=== PATIENT | male | born 1950 | race Caucasian/White ===

== ENCOUNTER 2020-09-14 18:46 | Inpatient (IN) ==
[2020-09-14 20:11] LABS: Basophils % 0.3 %; Hematocrit 46.2 % (37.5-50.1); Hemoglobin 15.2 g/dL (12.9-16.9); Immature Granulocytes % 0.3 % (0-4); Lymphocytes # 1.1 K/mcL (0.6-4.6); Lymphocytes % 17.2 %; Mean Corpuscular HGB Conc 32.9 g/dL (31.6-35.5); Mean Corpuscular Hemoglobin 32.1 pg (28.0-33.3); Mean Corpuscular Volume 97.5 fL (83.0-100.0); Mean Platelet Volume 10.1 fL (9.4-12.4); Monocytes # 0.7 K/mcL (0.0-1.3); Monocytes % 10.4 %; Neutrophils # 4.7 K/mcL (1.6-8.9); Platelet Count 147 K/mcL (140-400); Red Blood Count 4.74 M/mcL (4.19-5.50); Segmented Neutrophils % 71.8 %; White Blood Count 6.5 K/mcL (4.3-11.1)
[2020-09-14 20:31] LABS: BUN/Creatinine Ratio 18 (6-26); Blood Urea Nitrogen 23 mg/dL (8-23); Carbon Dioxide 25 mEq/L (23-29); Chloride 99 mEq/L (98-107); Glucose 110 mg/dL (70-105); Osmolality,Calculated 280 (280-300); Potassium 4.6 mEq/L (3.5-5.1); Sodium 133 mEq/L (136-145); Troponin I < 0.03 ng/mL (< 0.04); eGFR For African Americans > 60 (> 60); eGFR For Non-African Americans 56 (> 60)
[2020-09-15] MEDS ORDERED: Naloxone 0.4 MG/ML INJ IVP PRN (00:10)
[2020-09-15] MEDS ORDERED: Ondansetron 4 MG/2 ML VIAL IVP PRN (00:10)
[2020-09-15] MEDS ORDERED: Acetaminophen 325 MG TABLET PO PRN (00:10)
[2020-09-15] MEDS ORDERED: Isovue-370 500 ML BOTTLE IVP ONE (04:00)
[2020-09-15 05:55] LABS: Basophils % 0.2 %; Hemoglobin 16.2 g/dL (12.9-16.9); Immature Granulocytes % 0.5 % (0-4); Lymphocytes # 0.8 K/mcL (0.6-4.6); Lymphocytes % 17.1 %; Mean Corpuscular HGB Conc 33.8 g/dL (31.6-35.5); Mean Corpuscular Hemoglobin 32.7 pg (28.0-33.3); Mean Corpuscular Volume 96.8 fL (83.0-100.0); Mean Platelet Volume 10.5 fL (9.4-12.4); Monocytes # 0.3 K/mcL (0.0-1.3); Monocytes % 7.3 %; Neutrophils # 3.3 K/mcL (1.6-8.9); Platelet Count 147 K/mcL (140-400); Red Blood Count 4.96 M/mcL (4.19-5.50); Red Cell Distribution Width 13.8 % (11.5-14.5); Segmented Neutrophils % 74.9 %; White Blood Count 4.4 K/mcL (4.3-11.1)
[2020-09-15 05:56] LABS: INR 1.1; Prothrombin Time 12.2 Seconds (9.4-12.1)
[2020-09-15 06:17] LABS: Alanine Aminotransferase 134 Units/L (7-52); Albumin 3.7 g/dL (3.5-5.7); Albumin/Globulin Ratio 1.1 (1.1-2.2); Alkaline Phosphatase 75 Units/L (34-104); Aspartate Amino Transferase 101 Units/L (13-39); BUN/Creatinine Ratio 21 (6-26); Bilirubin,Total 0.6 mg/dL (0.3-1.0); Blood Urea Nitrogen 23 mg/dL (8-23); Carbon Dioxide 21 mEq/L (23-29); Chloride 101 mEq/L (98-107); Globulin 3.4 g/dL (2.4-3.5); Glucose 204 mg/dL (70-105); Lactate Dehydrogenase 330 Units/L (140-271); Magnesium 1.8 mg/dL (1.6-2.6); Osmolality,Calculated 282 (280-300); Potassium 4.7 mEq/L (3.5-5.1); Sodium 131 mEq/L (136-145); Total Protein 7.1 g/dL (6.4-8.9); eGFR For African Americans > 60 (> 60); eGFR For Non-African Americans > 60 (> 60)
[2020-09-15 06:30] LABS: Ferritin > 1500 ng/mL (20-250)
[2020-09-15] MEDS ORDERED: Isovue-370 500 ML BOTTLE PO ONE (07:33)
[2020-09-15 08:52] LABS: C-Reactive Protein 66 mg/L (Less than 10)
[2020-09-15] MEDS ORDERED: Pregabalin 50 MG CAPSULE PO SCH ×2 (09:00→21:00)
[2020-09-15] MEDS: Dexamethasone Sodium Phos/PF 10 MG/ML VIAL IVP SCH (09:12)
[2020-09-15] MEDS: Furosemide 40 MG TABLET PO SCH (09:12)
[2020-09-15] MEDS: *HR* Enoxaparin 40 MG/0.4 ML SYRINGE SQ SCH (09:12)
[2020-09-15] MEDS ORDERED: Pregabalin 50 MG CAPSULE PO STA (09:16)
[2020-09-15] MEDS: Tiotropium 10 INH DOSE IH SCH (10:57)
[2020-09-16 05:28] LABS: Basophils % 0.1 %; Eosinophils % 0.1 %; Hematocrit 51.1 % (37.5-50.1); Hemoglobin 17.3 g/dL (12.9-16.9); Immature Granulocytes % 0.3 % (0-4); Mean Corpuscular HGB Conc 33.9 g/dL (31.6-35.5); Mean Corpuscular Hemoglobin 32.8 pg (28.0-33.3); Mean Platelet Volume 10.1 fL (9.4-12.4); Monocytes # 0.8 K/mcL (0.0-1.3); Monocytes % 7.1 %; Neutrophils # 8.9 K/mcL (1.6-8.9); Platelet Count 167 K/mcL (140-400); Red Blood Count 5.27 M/mcL (4.19-5.50); Red Cell Distribution Width 13.5 % (11.5-14.5); Segmented Neutrophils % 83.4 %
[2020-09-16 05:29] LABS: White Blood Count 10.7 K/mcL (4.3-11.1)
[2020-09-16 05:47] LABS: BUN/Creatinine Ratio 27 (6-26); Blood Urea Nitrogen 31 mg/dL (8-23); Calcium 9.6 mg/dL (8.6-10.3); Carbon Dioxide 22 mEq/L (23-29); Chloride 103 mEq/L (98-107); Glucose 185 mg/dL (70-105); Magnesium 2.2 mg/dL (1.6-2.6); Osmolality,Calculated 287 (280-300); Phosphorous 3.4 mg/dL (2.7-4.5); Potassium 4.5 mEq/L (3.5-5.1); Sodium 133 mEq/L (136-145); eGFR For African Americans > 60 (> 60); eGFR For Non-African Americans > 60 (> 60)
[2020-09-16] MEDS: *HR* Enoxaparin 40 MG/0.4 ML SYRINGE SQ SCH (05:51)
[2020-09-16] MEDS ORDERED: Pregabalin 50 MG CAPSULE PO SCH (09:00)
[2020-09-16] MEDS: Furosemide 40 MG TABLET PO SCH (09:12)
[2020-09-16] MEDS: Dexamethasone Sodium Phos/PF 10 MG/ML VIAL IVP SCH (09:12)
[2020-09-16] MEDS: Tiotropium 10 INH DOSE IH SCH (09:23)
[2020-09-16 10:08] VITALS: BP 132/86
== END 2020-09-16 18:38 | disposition home or self-care (01) | DRG 177 ==
LOC: 2NENU 18:46 → EMEROOARM 18:46 → 2NENU 09-15 01:49
PROVIDERS: ADMIT Internal Medicine; ATTEND Internal Medicine

== ENCOUNTER 2020-09-17 12:08 | Inpatient (IN) ==
[2020-09-17 12:45] LABS: Basophils % 0.1 %; Hematocrit 44.7 % (37.5-50.1); Immature Granulocytes % 0.5 % (0-4); Lymphocytes # 0.8 K/mcL (0.6-4.6); Lymphocytes % 8.2 %; Mean Corpuscular HGB Conc 33.8 g/dL (31.6-35.5); Mean Corpuscular Hemoglobin 32.6 pg (28.0-33.3); Mean Corpuscular Volume 96.5 fL (83.0-100.0); Mean Platelet Volume 10.1 fL (9.4-12.4); Monocytes # 0.8 K/mcL (0.0-1.3); Monocytes % 7.6 %; Neutrophils # 8.4 K/mcL (1.6-8.9); Platelet Count 217 K/mcL (140-400); Red Blood Count 4.63 M/mcL (4.19-5.50); Red Cell Distribution Width 13.6 % (11.5-14.5); Segmented Neutrophils % 83.6 %; White Blood Count 10.1 K/mcL (4.3-11.1)
[2020-09-17 12:46] LABS: Hemoglobin 15.1 g/dL (12.9-16.9)
[2020-09-17] MEDS ORDERED: Isovue-370 500 ML BOTTLE IVP ONE (12:52)
[2020-09-17 13:07] LABS: BUN/Creatinine Ratio 24 (6-26); Blood Urea Nitrogen 30 mg/dL (8-23); Carbon Dioxide 26 mEq/L (23-29); Chloride 99 mEq/L (98-107); Glucose 120 mg/dL (70-105); Osmolality,Calculated 283 (280-300); Potassium 4.1 mEq/L (3.5-5.1); Sodium 133 mEq/L (136-145); Troponin I < 0.03 ng/mL (< 0.04); eGFR For African Americans > 60 (> 60); eGFR For Non-African Americans 56 (> 60)
[2020-09-17] MEDS ORDERED: Vancomycin 2,000 MG/520 ML IV.SOLN IVPB ONE (14:36)
[2020-09-17] MEDS ORDERED: Piperacillin/Tazobactam 3.375 GM in 0.9 % Sodium Chloride Mini Bag 100 ML IVPB ONE (14:36)
[2020-09-17] MEDS ORDERED: Ipratropium/Albuterol Neb 3 ML IH ONE (15:40)
[2020-09-17] MEDS ORDERED: Ipratropium/Albuterol Neb 3 ML IH PRN (15:40)
[2020-09-17] MEDS ORDERED: Naloxone 0.4 MG/ML INJ IVP PRN (15:47)
[2020-09-17] MEDS ORDERED: Furosemide 40 MG/4 ML VIAL IVP ONE (15:53)
[2020-09-17 16:14] LABS: Alanine Aminotransferase 111 Units/L (7-52); Albumin 3.4 g/dL (3.5-5.7); Alkaline Phosphatase 72 Units/L (34-104); Aspartate Amino Transferase 91 Units/L (13-39); Bilirubin,Direct 0.3 mg/dL (0.0-0.2); Bilirubin,Indirect 0.8 mg/dL (0.0-1.0); Bilirubin,Total 1.1 mg/dL (0.3-1.0); Globulin 3.3 g/dL (2.4-3.5); Total Protein 6.7 g/dL (6.4-8.9)
[2020-09-17 16:31] LABS: VBG HCO3 25 mEq/L (21-27); VBG PCO2 43 mmHg (41-51); VBG PH 7.38 pH Units (7.32-7.42); VBG PO2 136 mmHg (25-50)
[2020-09-17] MEDS: Dexamethasone 4 MG/ML VIAL IVP SCH (18:12)
[2020-09-17] MEDS: Azithromycin 500 MG in 0.9 % Sodium Chloride 250 ML IVPB SCH (18:12)
[2020-09-17] MEDS: cefTRIAXone 2,000 MG in Water for inj. (sterile) 20 ML IVP SCH (18:13)
[2020-09-17] MEDS: Ipratropium 1 PUFF INHALER IH SCH ×2 (18:21→20:26)
[2020-09-17] MEDS: *HR* Enoxaparin 40 MG/0.4 ML SYRINGE SQ SCH ×2 (19:34→20:09)
[2020-09-17] MEDS ORDERED: Remdesivir 200 MG in 0.9 % Sodium Chloride 100 ML IVPB ONE (20:00)
[2020-09-17] MEDS ORDERED: *HR* Heparin 5,000 UNIT/ML VIAL SQ SCH (22:00)
[2020-09-18] MEDS: Ipratropium 1 PUFF INHALER IH SCH ×6 (00:03→20:08)
[2020-09-18 07:18] LABS: Hematocrit 44.5 % (37.5-50.1); Hemoglobin 14.8 g/dL (12.9-16.9); Mean Corpuscular HGB Conc 33.3 g/dL (31.6-35.5); Mean Corpuscular Volume 96.3 fL (83.0-100.0); Mean Platelet Volume 10.2 fL (9.4-12.4); Platelet Count 201 K/mcL (140-400); Red Blood Count 4.62 M/mcL (4.19-5.50); Red Cell Distribution Width 13.8 % (11.5-14.5); White Blood Count 7.8 K/mcL (4.3-11.1)
[2020-09-18 07:38] LABS: Alanine Aminotransferase 98 Units/L (7-52); Albumin 3.3 g/dL (3.5-5.7); Alkaline Phosphatase 69 Units/L (34-104); Aspartate Amino Transferase 58 Units/L (13-39); BUN/Creatinine Ratio 26 (6-26); Bilirubin,Total 0.7 mg/dL (0.3-1.0); Blood Urea Nitrogen 31 mg/dL (8-23); Carbon Dioxide 24 mEq/L (23-29); Chloride 102 mEq/L (98-107); Globulin 3.3 g/dL (2.4-3.5); Glucose 183 mg/dL (70-105); Osmolality,Calculated 291 (280-300); Potassium 4.2 mEq/L (3.5-5.1); Sodium 135 mEq/L (136-145); Total Protein 6.6 g/dL (6.4-8.9); eGFR For African Americans > 60 (> 60); eGFR For Non-African Americans > 60 (> 60)
[2020-09-18] MEDS: Dexamethasone 4 MG/ML VIAL IVP SCH (08:43)
[2020-09-18] MEDS: *HR* Enoxaparin 40 MG/0.4 ML SYRINGE SQ SCH ×2 (08:43→19:59)
[2020-09-18] MEDS ORDERED: Dexamethasone 4 MG/ML VIAL IVP ONE (10:41)
[2020-09-18] MEDS: Furosemide 40 MG/4 ML VIAL IVP SCH ×2 (11:49→19:59)
[2020-09-18] MEDS: cefTRIAXone 2,000 MG in Water for inj. (sterile) 20 ML IVP SCH (16:04)
[2020-09-18] MEDS: Azithromycin 500 MG in 0.9 % Sodium Chloride 250 ML IVPB SCH (16:04)
[2020-09-18] MEDS: Remdesivir 100 MG in 0.9 % Sodium Chloride 100 ML IVPB SCH (19:59)
[2020-09-19] MEDS: Ipratropium 1 PUFF INHALER IH SCH ×6 (00:04→20:22)
[2020-09-19 02:29] LABS: Hematocrit 46.4 % (37.5-50.1); Hemoglobin 15.9 g/dL (12.9-16.9); Mean Corpuscular HGB Conc 34.3 g/dL (31.6-35.5); Mean Corpuscular Hemoglobin 32.2 pg (28.0-33.3); Mean Corpuscular Volume 93.9 fL (83.0-100.0); Mean Platelet Volume 10.6 fL (9.4-12.4); Platelet Count 256 K/mcL (140-400); Red Blood Count 4.94 M/mcL (4.19-5.50); Red Cell Distribution Width 13.4 % (11.5-14.5); White Blood Count 11.1 K/mcL (4.3-11.1)
[2020-09-19 02:50] LABS: Alanine Aminotransferase 88 Units/L (7-52); Albumin 3.4 g/dL (3.5-5.7); Albumin/Globulin Ratio 0.9 (1.1-2.2); Alkaline Phosphatase 72 Units/L (34-104); Aspartate Amino Transferase 40 Units/L (13-39); BUN/Creatinine Ratio 30 (6-26); Bilirubin,Total 0.6 mg/dL (0.3-1.0); Blood Urea Nitrogen 30 mg/dL (8-23); Calcium 9.3 mg/dL (8.6-10.3); Carbon Dioxide 24 mEq/L (23-29); Chloride 101 mEq/L (98-107); Globulin 3.6 g/dL (2.4-3.5); Glucose 199 mg/dL (70-105); Osmolality,Calculated 294 (280-300); Sodium 136 mEq/L (136-145); eGFR For African Americans > 60 (> 60); eGFR For Non-African Americans > 60 (> 60)
[2020-09-19] MEDS ORDERED: D5% in Water 1,000 ML IVC PRN (07:50)
[2020-09-19] MEDS ORDERED: *HR* Dextrose 50 % in Water (Vial) 50 ML VIAL IVP PRN (07:50)
[2020-09-19] MEDS ORDERED: Dextrose Gel 15 GM/37.5 ML TUBE PO PRN ×2 (07:50)
[2020-09-19] MEDS: Dexamethasone 4 MG/ML VIAL IVP SCH (08:30)
[2020-09-19] MEDS: Furosemide 40 MG/4 ML VIAL IVP SCH ×2 (08:30→21:00)
[2020-09-19] MEDS: Insulin DETEMIR 100 UNIT/ML X5UNITS SUBQ SCH (08:30)
[2020-09-19] MEDS: *HR* Enoxaparin 40 MG/0.4 ML SYRINGE SQ SCH ×2 (08:30→21:01)
[2020-09-19] MEDS: Insulin LISPRO 300 UNITS/3 ML VIAL SUBQ SCH ×3 (11:18→21:00)
[2020-09-19] MEDS: *HR* LORazepam 2 MG/ML VIAL IVP PRN ×2 (13:25→21:06)
[2020-09-19] MEDS: cefTRIAXone 2,000 MG in Water for inj. (sterile) 20 ML IVP SCH (17:06)
[2020-09-19] MEDS: Azithromycin 500 MG in 0.9 % Sodium Chloride 250 ML IVPB SCH (17:07)
[2020-09-19] MEDS: Remdesivir 100 MG in 0.9 % Sodium Chloride 100 ML IVPB SCH (21:00)
[2020-09-20] MEDS: Ipratropium 1 PUFF INHALER IH SCH ×7 (00:17→23:14)
[2020-09-20 07:16] LABS: Hematocrit 48.5 % (37.5-50.1); Hemoglobin 16.7 g/dL (12.9-16.9); Mean Corpuscular HGB Conc 34.4 g/dL (31.6-35.5); Mean Corpuscular Hemoglobin 32.7 pg (28.0-33.3); Mean Corpuscular Volume 94.9 fL (83.0-100.0); Mean Platelet Volume 10.3 fL (9.4-12.4); Platelet Count 334 K/mcL (140-400); Red Blood Count 5.11 M/mcL (4.19-5.50); Red Cell Distribution Width 13.2 % (11.5-14.5); White Blood Count 13.2 K/mcL (4.3-11.1)
[2020-09-20] MEDS: Furosemide 40 MG/4 ML VIAL IVP SCH ×2 (08:51→20:29)
[2020-09-20] MEDS: Dexamethasone 4 MG/ML VIAL IVP SCH (08:51)
[2020-09-20] MEDS: Insulin LISPRO 300 UNITS/3 ML VIAL SUBQ SCH ×4 (08:52→21:05)
[2020-09-20] MEDS: Insulin DETEMIR 100 UNIT/ML X5UNITS SUBQ SCH (08:52)
[2020-09-20] MEDS: *HR* Enoxaparin 40 MG/0.4 ML SYRINGE SQ SCH ×2 (08:52→20:29)
[2020-09-20] MEDS: *HR* LORazepam 2 MG/ML VIAL IVP PRN (08:52)
[2020-09-20 09:54] LABS: Alanine Aminotransferase 65 Units/L (7-52); Albumin 3.4 g/dL (3.5-5.7); Albumin/Globulin Ratio 0.9 (1.1-2.2); Alkaline Phosphatase 73 Units/L (34-104); Aspartate Amino Transferase 27 Units/L (13-39); BUN/Creatinine Ratio 32 (6-26); Bilirubin,Total 0.8 mg/dL (0.3-1.0); Blood Urea Nitrogen 39 mg/dL (8-23); Calcium 9.4 mg/dL (8.6-10.3); Carbon Dioxide 26 mEq/L (23-29); Chloride 101 mEq/L (98-107); Globulin 3.6 g/dL (2.4-3.5); Glucose 158 mg/dL (70-105); Osmolality,Calculated 297 (280-300); Potassium 3.9 mEq/L (3.5-5.1); Sodium 137 mEq/L (136-145); eGFR For African Americans > 60 (> 60); eGFR For Non-African Americans 59 (> 60)
[2020-09-20] MEDS: Doxycycline 100 MG in 0.9 % Sodium Chloride Mini Bag 100 ML IVPB SCH (17:13)
[2020-09-20] MEDS: cefTRIAXone 2,000 MG in Water for inj. (sterile) 20 ML IVP SCH (17:14)
[2020-09-20] MEDS: Remdesivir 100 MG in 0.9 % Sodium Chloride 100 ML IVPB SCH (20:27)
[2020-09-21] MEDS: Ipratropium 1 PUFF INHALER IH SCH ×6 (03:50→23:36)
[2020-09-21] MEDS: Doxycycline 100 MG in 0.9 % Sodium Chloride Mini Bag 100 ML IVPB SCH ×2 (05:48→18:16)
[2020-09-21 06:38] LABS: Alanine Aminotransferase 55 Units/L (7-52); Albumin 3.4 g/dL (3.5-5.7); Albumin/Globulin Ratio 0.9 (1.1-2.2); Alkaline Phosphatase 80 Units/L (34-104); Aspartate Amino Transferase 25 Units/L (13-39); BUN/Creatinine Ratio 37 (6-26); Bilirubin,Total 0.8 mg/dL (0.3-1.0); Blood Urea Nitrogen 43 mg/dL (8-23); Calcium 9.6 mg/dL (8.6-10.3); Carbon Dioxide 25 mEq/L (23-29); Chloride 100 mEq/L (98-107); Globulin 3.6 g/dL (2.4-3.5); Glucose 172 mg/dL (70-105); Osmolality,Calculated 299 (280-300); Sodium 137 mEq/L (136-145); eGFR For African Americans > 60 (> 60); eGFR For Non-African Americans > 60 (> 60)
[2020-09-21] MEDS: *HR* Enoxaparin 40 MG/0.4 ML SYRINGE SQ SCH ×2 (08:56→21:42)
[2020-09-21] MEDS: Dexamethasone 4 MG/ML VIAL IVP SCH (08:57)
[2020-09-21] MEDS: Insulin DETEMIR 100 UNIT/ML X5UNITS SUBQ SCH (08:57)
[2020-09-21] MEDS: Furosemide 40 MG/4 ML VIAL IVP SCH ×2 (08:59→21:41)
[2020-09-21] MEDS: Insulin LISPRO 300 UNITS/3 ML VIAL SUBQ SCH ×5 (09:00→21:29)
[2020-09-21 12:58] LABS: Magnesium 2.3 mg/dL (1.6-2.6); Phosphorous 4.1 mg/dL (2.7-4.5)
[2020-09-21] MEDS ORDERED: D10% in Water 500 ML IVC PRN (12:58)
[2020-09-21] MEDS ORDERED: Lidocaine -MPF 1% 5 ML AMPUL INFILT ONE (14:48)
[2020-09-21] MEDS ORDERED: Clinimix E 5%-15% SOLUTION 2,000 ML IVC SCH (17:00)
[2020-09-21] MEDS: cefTRIAXone 2,000 MG in Water for inj. (sterile) 20 ML IVP SCH (18:16)
[2020-09-21] MEDS: *HR* LORazepam 2 MG/ML VIAL IVP PRN (19:35)
[2020-09-21] MEDS: Remdesivir 100 MG in 0.9 % Sodium Chloride 100 ML IVPB SCH (20:50)
[2020-09-22] MEDS: *HR* LORazepam 2 MG/ML VIAL IVP PRN ×2 (00:13→05:30)
[2020-09-22] MEDS: Insulin LISPRO 300 UNITS/3 ML VIAL SUBQ SCH ×6 (00:38→20:43)
[2020-09-22] MEDS: Ipratropium 1 PUFF INHALER IH SCH ×5 (04:27→20:30)
[2020-09-22 06:01] LABS: Alanine Aminotransferase 52 Units/L (7-52); Albumin 3.4 g/dL (3.5-5.7); Alkaline Phosphatase 75 Units/L (34-104); Aspartate Amino Transferase 24 Units/L (13-39); BUN/Creatinine Ratio 44 (6-26); Bilirubin,Total 0.8 mg/dL (0.3-1.0); Blood Urea Nitrogen 44 mg/dL (8-23); Calcium 9.6 mg/dL (8.6-10.3); Carbon Dioxide 26 mEq/L (23-29); Chloride 99 mEq/L (98-107); Globulin 3.5 g/dL (2.4-3.5); Glucose 189 mg/dL (70-105); Magnesium 2.3 mg/dL (1.6-2.6); Osmolality,Calculated 298 (280-300); Potassium 4.1 mEq/L (3.5-5.1); Sodium 136 mEq/L (136-145); Total Protein 6.9 g/dL (6.4-8.9); Triglycerides 142 mg/dL (< 150); eGFR For African Americans > 60 (> 60); eGFR For Non-African Americans > 60 (> 60)
[2020-09-22] MEDS: Doxycycline 100 MG in 0.9 % Sodium Chloride Mini Bag 100 ML IVPB SCH ×2 (06:38→18:55)
[2020-09-22] MEDS ORDERED: Haloperidol Lactate 5 MG/ML VIAL IVP ONE (06:50)
[2020-09-22] MEDS: Furosemide 40 MG/4 ML VIAL IVP SCH ×2 (07:58→20:43)
[2020-09-22] MEDS: Dexamethasone 4 MG/ML VIAL IVP SCH (07:59)
[2020-09-22] MEDS: *HR* Enoxaparin 40 MG/0.4 ML SYRINGE SQ SCH ×2 (07:59→20:42)
[2020-09-22] MEDS: Insulin DETEMIR 100 UNIT/ML X5UNITS SUBQ SCH (08:07)
[2020-09-22] MEDS: Budesonide/Formoterol 160/4.5 1 PUFF INH IH SCH ×2 (11:30→20:31)
[2020-09-22] MEDS: Dexmedetomidine HCl 400 MCG/100 ML MLS IVC SCH (11:49)
[2020-09-22] MEDS: cefTRIAXone 2,000 MG in Water for inj. (sterile) 20 ML IVP SCH (16:08)
[2020-09-22] MEDS ORDERED: Clinimix E 5%-20% SOLUTION 2,000 ML with MVI, adult with vitamin K 10 ML IVC SCH (17:00)
[2020-09-23] MEDS: Insulin LISPRO 300 UNITS/3 ML VIAL SUBQ SCH ×6 (00:12→19:54)
[2020-09-23] MEDS: Ipratropium 1 PUFF INHALER IH SCH ×7 (00:23→23:47)
[2020-09-23] MEDS: Dexmedetomidine HCl 400 MCG/100 ML MLS IVC SCH ×2 (03:50→19:52)
[2020-09-23] MEDS: Doxycycline 100 MG in 0.9 % Sodium Chloride Mini Bag 100 ML IVPB SCH ×2 (05:17→17:18)
[2020-09-23 05:46] LABS: BUN/Creatinine Ratio 41 (6-26); Blood Urea Nitrogen 48 mg/dL (8-23); Calcium 9.5 mg/dL (8.6-10.3); Carbon Dioxide 26 mEq/L (23-29); Chloride 101 mEq/L (98-107); Glucose 335 mg/dL (70-105); Magnesium 2.5 mg/dL (1.6-2.6); Osmolality,Calculated 310 (280-300); Phosphorous 2.9 mg/dL (2.7-4.5); Sodium 137 mEq/L (136-145); eGFR For African Americans > 60 (> 60); eGFR For Non-African Americans > 60 (> 60)
[2020-09-23] MEDS: Budesonide/Formoterol 160/4.5 1 PUFF INH IH SCH ×2 (07:57→20:11)
[2020-09-23] MEDS: Furosemide 40 MG/4 ML VIAL IVP SCH (08:21)
[2020-09-23] MEDS: Dexamethasone Sodium Phos/PF 10 MG/ML VIAL IVP SCH (08:22)
[2020-09-23] MEDS: *HR* Enoxaparin 40 MG/0.4 ML SYRINGE SQ SCH ×2 (08:23→19:52)
[2020-09-23] MEDS: Insulin DETEMIR 100 UNIT/ML X5UNITS SUBQ SCH ×2 (08:27→21:05)
[2020-09-23] MEDS ORDERED: Clinimix E 5%-20% SOLUTION 2,000 ML IVC SCH (17:00)
[2020-09-23] MEDS: cefTRIAXone 2,000 MG in Water for inj. (sterile) 20 ML IVP SCH (17:19)
[2020-09-24] MEDS: Insulin LISPRO 300 UNITS/3 ML VIAL SUBQ SCH ×10 (01:12→23:19)
[2020-09-24] MEDS: Ipratropium 1 PUFF INHALER IH SCH ×6 (04:08→23:40)
[2020-09-24] MEDS: Dexmedetomidine HCl 400 MCG/100 ML MLS IVC SCH ×3 (04:26→18:56)
[2020-09-24 05:47] LABS: BUN/Creatinine Ratio 42 (6-26); Blood Urea Nitrogen 41 mg/dL (8-23); Calcium 9.5 mg/dL (8.6-10.3); Carbon Dioxide 27 mEq/L (23-29); Chloride 97 mEq/L (98-107); Glucose 317 mg/dL (70-105); Magnesium 2.2 mg/dL (1.6-2.6); Osmolality,Calculated 292 (280-300); Phosphorous 2.7 mg/dL (2.7-4.5); Potassium 4.1 mEq/L (3.5-5.1); Sodium 130 mEq/L (136-145); eGFR For African Americans > 60 (> 60); eGFR For Non-African Americans > 60 (> 60)
[2020-09-24] MEDS: Budesonide/Formoterol 160/4.5 1 PUFF INH IH SCH ×2 (07:47→20:14)
[2020-09-24] MEDS: Insulin DETEMIR 100 UNIT/ML X5UNITS SUBQ SCH ×2 (09:30→20:57)
[2020-09-24] MEDS: Furosemide 40 MG/4 ML VIAL IVP SCH (09:30)
[2020-09-24] MEDS: Dexamethasone Sodium Phos/PF 10 MG/ML VIAL IVP SCH (09:30)
[2020-09-24] MEDS: *HR* Enoxaparin 40 MG/0.4 ML SYRINGE SQ SCH ×2 (09:31→20:57)
[2020-09-24] MEDS ORDERED: CLINIMIX E IVC SCH (17:00)
[2020-09-24] MEDS ORDERED: PARENTERAL AMINO ACID 10% IVC SCH (17:00)
[2020-09-24] MEDS ORDERED: [UNRECOGNIZED DRUG - OTHER] IVC SCH (17:00)
[2020-09-24] MEDS ORDERED: MVI IVC SCH (17:00)
[2020-09-24] MEDS: Morphine Sulfate Oral CONC 10 MG/0.5 ML ORAL.SYG SL PRN (23:18)
[2020-09-25] MEDS: *HR* LORazepam 2 MG/ML VIAL IVP PRN ×2 (00:11→23:12)
[2020-09-25] MEDS: Ipratropium 1 PUFF INHALER IH SCH ×6 (03:33→23:34)
[2020-09-25 06:06] LABS: BUN/Creatinine Ratio 43 (6-26); Blood Urea Nitrogen 45 mg/dL (8-23); Calcium 9.5 mg/dL (8.6-10.3); Carbon Dioxide 23 mEq/L (23-29); Chloride 97 mEq/L (98-107); Glucose 307 mg/dL (70-105); Magnesium 2.2 mg/dL (1.6-2.6); Osmolality,Calculated 293 (280-300); Phosphorous 3.1 mg/dL (2.7-4.5); Potassium 4.4 mEq/L (3.5-5.1); Sodium 130 mEq/L (136-145); eGFR For African Americans > 60 (> 60); eGFR For Non-African Americans > 60 (> 60)
[2020-09-25] MEDS: Budesonide/Formoterol 160/4.5 1 PUFF INH IH SCH ×2 (07:38→20:10)
[2020-09-25] MEDS ORDERED: Pantoprazole 40 MG VIAL IVP SCH (09:00)
[2020-09-25] MEDS: Furosemide 40 MG/4 ML VIAL IVP SCH (10:39)
[2020-09-25] MEDS: Dexamethasone Sodium Phos/PF 10 MG/ML VIAL IVP SCH (10:40)
[2020-09-25] MEDS: Insulin DETEMIR 100 UNIT/ML X5UNITS SUBQ SCH (10:40)
[2020-09-25] MEDS: *HR* Enoxaparin 40 MG/0.4 ML SYRINGE SQ SCH (10:40)
[2020-09-25] MEDS: Insulin LISPRO 300 UNITS/3 ML VIAL SUBQ SCH ×10 (10:41→18:42)
[2020-09-25] MEDS: Morphine Sulfate Oral CONC 10 MG/0.5 ML ORAL.SYG SL PRN ×2 (10:43→18:47)
[2020-09-25] MEDS: Dexmedetomidine HCl 400 MCG/100 ML MLS IVC SCH ×2 (12:09→19:00)
[2020-09-25] MEDS ORDERED: PARENTERAL AMINO ACID 10% IVC SCH (17:00)
[2020-09-25] MEDS ORDERED: CLINIMIX E IVC SCH (17:00)
[2020-09-25 19:23] VITALS: BP 107/95
[2020-09-25] MEDS ORDERED: Haloperidol Lactate 5 MG/ML VIAL IVP PRN (20:38)
[2020-09-25] MEDS ORDERED: Atropine 1% Opth Drops 100 DROP/5 ML BOTTLE SL PRN (20:47)
[2020-09-25] MEDS: *HR* FentaNYL (PF) 100 MCG/2 ML VIAL IVP PRN ×2 (21:26→23:12)
[2020-09-26] MEDS: Insulin LISPRO 300 UNITS/3 ML VIAL SUBQ SCH ×2 (00:18)
[2020-09-26] MEDS: Insulin DETEMIR 100 UNIT/ML X5UNITS SUBQ SCH (00:18)
[2020-09-26] MEDS: *HR* Enoxaparin 40 MG/0.4 ML SYRINGE SQ SCH (00:19)
[2020-09-26] MEDS: *HR* FentaNYL (PF) 100 MCG/2 ML VIAL IVP PRN (01:06)
[2020-09-26] MEDS: *HR* LORazepam 2 MG/ML VIAL IVP PRN (01:35)
[2020-09-26] MEDS ORDERED: PARENTERAL AMINO ACID 10% IVC SCH (17:00)
[2020-09-26] MEDS ORDERED: CLINIMIX E IVC SCH (17:00)
== END 2020-09-26 01:59 | disposition expired | DRG 871 ==
LOC: EMEROOARM 12:08 → 2NENU 12:08 → SUATTDRO 15:46 → 2NENU 17:00
PROVIDERS: ADMIT Internal Medicine; ATTEND Internal Medicine